=== PATIENT | female | born 2000 | race Caucasian/White ===

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

== ENCOUNTER 2022-12-01 22:12 | Emergency (ER) | payer OTHER ==
[~2022-12-01] VITALS: Ht 170.2 cm; Wt 99.3 kg
[~2022-12-01 22:12] MED LIST changes: +METPRE32 PO
[2022-12-01 22:38] VITALS: BP 123/75
== END 2022-12-02 00:24 | disposition home or self-care (01) ==
LOC: ER 22:12
DX: Z76.0 Encounter for issue of repeat prescription (principal); H46.9 Unspecified optic neuritis; Z79.52 Long term (current) use of systemic steroids
CPT/HCPCS: 96365; 99283-25; J2930; J7509